=== PATIENT | male | born 1980 | race American Indian/Alaskan Native ===

== ENCOUNTER 2017-01-04 10:39 | Emergency (ER) | payer SELFPAY ==
[2017-01-04 11:40] LABS: Basophils % (Auto) 0.3 % (0.0-1.8); Eosinophils % (Auto) 7.5 % (0.0-4.3); Hematocrit 45.9 % (35.5-45.6); Hemoglobin 15.4 gm/dl (11.8-15.2); Mean Corpuscular HGB Conc 34 % (32-34); Mean Corpuscular Hemoglobin 31 pg (28-32); Mean Corpuscular Volume 92 fl (84-94); Platelet Count 384 K/mm3 (140-440); Red Blood Count 4.97 M/mm3 (3.65-5.03); Red Cell Distribution Width 16.2 % (13.2-15.2); White Blood Count 9.4 K/mm3 (4.5-11.0)
[2017-01-04 11:56] LABS: Creatine Kinase MB 6.1 ng/mL (0.0-4.0)
[2017-01-04 12:01] LABS: Anion Gap 20 mmol/L; Blood Urea Nitrogen 16 mg/dL (9-20); Calcium 8.8 mg/dL (8.4-10.2); Carbon Dioxide 22 mmol/L (22-30); Chloride 92.5 mmol/L (98-107); Creatine Kinase 620 units/L (55-170); Glucose 115 mg/dL (75-100); Potassium 4.1 mmol/L (3.6-5.0); Sodium 130 mmol/L (137-145)
[2017-01-04 14:23] LABS: Urine Drugs of Abuse Note Disclamer
[2017-01-04 14:41] LABS: Bilirubin,Urine NEG (Negative); Blood,Urine SM (Negative); Ketones,Urine TR mg/dL (Negative); Leukocyte Esterase,Urine NEG (Negative); Mucus,Urine FEW /HPF; Nitrite,Urine NEG (Negative); Urobilinogen,Urine < 2.0 mg/dL (<2.0)
[2017-01-04] MEDS ORDERED: NACL 0.9% 1000 ML 1,000 ML IV ONE (17:34)
--- NOTE | 2017-01-04 18:29 | Emergency Department Report ---
ED Syncope HPI - General Chief Complaint: Syncope Stated Complaint: PASSED OUT Time Seen by Provider: 01/04/17 17:23 Source: patient, RN notes reviewed Exam Limitations: no limitations - History of Present Illness Initial Comments: 36-year-old male presents to the emergency department after a syncopal episode. Patient states that he was walking when he suddenly passed out. Patient states that he felt like he was about to have a seizure. There is no report of seizure activity today. Patient denies chest pain, palpitations, or shortness of breath prior to passing out. He states his friends were with him and states that he was unconscious only for a couple of seconds. Patient is also complaining of generalized abdominal pain with blood in stool. This has been present for approximately one year. He reports pain occurs just before having a bowel movement. Pain resolves after a bowel movement. There are no other complaints. Timing/Prior Episodes: single episode today Precipitating Factors: Positive: none Context: standing Loss of Consciousness: brief (seconds) Current Symptoms: back to normal - Related Data Allergies/Adverse Reactions: Allergies No Known Allergies Allergy (Verified 11/17/15 03:17) Home Medications: Ambulatory Orders No Known Home Medications [No Reported Home Medications] 08/14/16 ED Review of Systems ROS: Stated complaint: PASSED OUT Other details as noted in HPI Comment: All other systems reviewed and negative Cardiovascular: syncope Gastrointestinal: abdominal pain, hematochezia ED Past Medical Hx - Past Medical History Previous Medical History?: Yes Hx Hypertension: Yes (no med) Hx Seizures: Yes Hx Psychiatric Treatment: Yes (depression boderline personality disorder) Additional medical history: Self-mutilation. etoh. meth. crack - Surgical History Past Surgical History?: Yes Additional Surgical History: Facial surgery secondary to fractures - Family History Family history: no significant - Social History Smoking Status: Current Every Day Smoker Substance Use Type: Alcohol, Cocaine, Marijuana, Methamphetamines - Medications Home Medications: Home Medications Medication Instructions Recorded Confirmed Last Taken Type No Known Home Medications [No 08/14/16 08/27/16 Unknown History Reported Home Medications] ED Physical Exam - General Limitations: No Limitations General appearance: alert, in no apparent distress - Head Head exam: Present: atraumatic, normocephalic - Eye Eye exam: Present: normal appearance, PERRL, EOMI - ENT ENT exam: Present: normal exam, normal orophraynx, mucous membranes moist - Neck Neck exam: Present: normal inspection, full ROM. Absent: tenderness - Respiratory Respiratory exam: Present: normal lung sounds bilaterally. Absent: respiratory distress - Cardiovascular Cardiovascular Exam: Present: regular rate, normal rhythm, normal heart sounds - GI/Abdominal GI/Abdominal exam: Present: soft, normal bowel sounds. Absent: distended, tenderness - Extremities Exam Extremities exam: Present: normal inspection, full ROM. Absent: tenderness - Back Exam Back exam: Present: normal inspection, full ROM. Absent: tenderness - Neurological Exam Neurological exam: Present: alert, oriented X3. Absent: motor sensory deficit - Skin Skin exam: Present: warm, dry, intact ED Course Vital Signs 01/04/17 01/04/17 01/04/17 11:08 17:21 17:25 Temperature 98.4 F Pulse Rate 100 H 99 H Respiratory 20 20 Rate Blood Pressure 155/111 Blood Pressure 154/98 [Left] O2 Sat by Pulse 100 100 Oximetry ED Medical Decision Making - Lab Data Result diagrams: 01/04/17 11:21 01/04/17 11:21 - EKG Data -: EKG Interpreted by Nv EKG shows normal: sinus rhythm, axis, intervals Rate: normal - EKG Data When compared to previous EKG there are: no significant change Interpretation: unchanged when compared t (08/26/2016), LVH (with early repolarization) - Medical Decision Making Laboratory results reviewed and discussed with the patient. Patient has remained asymptomatic in the emergency department. He reports feeling better with IV fluids. Patient will be discharged home at this time. - Differential Diagnosis syncope, dehydration, drug abuse, diverticular disease Critical care attestation.: If time is entered above; I have spent that time in minutes in the direct care of this critically ill patient, excluding procedure time. ED Disposition Clinical Impression: Syncope and collapse, Polysubstance abuse Disposition: DISCHARGED TO HOME OR SELFCARE Is pt being admited?: No Condition: Stable Instructions: Syncope (ED), Polysubstance Abuse (ED) Referrals: PRIMARY CARE, [Primary Care Provider] - 3-5 Days Time of Disposition: 19:34
[2017-01-04 18:47] VITALS: BP 154/98
== END 2017-01-04 19:41 | disposition home or self-care (01) ==
LOC: ED 10:39
DX: R55 Syncope and collapse (principal); F19.10 Other psychoactive substance abuse, uncomplicated; I10 Essential (primary) hypertension; F17.200 Nicotine dependence, unspecified, uncomplicated; F12.10 Cannabis abuse, uncomplicated; F14.10 Cocaine abuse, uncomplicated
CPT/HCPCS: 36415; 80048; 80307; 81001; 82550; 82553; 84484; 85025; 93005; 93010; 96360; 99283; J7030

== ENCOUNTER 2017-02-16 08:36 | Emergency (ER) | payer SELFPAY ==
[2017-02-16 09:55] VITALS: BP 134/80
--- NOTE | 2017-02-16 10:32 | XRay Report ---
CHEST 2 VIEWS INDICATION: Hypertension. COMPARISON: None similar. FINDINGS: PA and lateral chest radiographs demonstrate normal cardiomediastinal silhouette. Clear, hyperexpanded lungs/COPD. Mild left basilar scarring/pleural thickening/juxtaphrenic peak. No pleural effusions or CHF. Intact bones. CONCLUSION: COPD without acute chest process, as described. Thank you for the opportunity to participate in this patient's care.
[2017-02-16] MEDS ORDERED: KEPPRA PO ONE (10:49)
--- NOTE | 2017-02-16 10:49 | Emergency Department Report ---
ED Syncope HPI - General Chief Complaint: Syncope Stated Complaint: PASSED OUT Time Seen by Provider: 02/16/17 09:31 Source: patient - History of Present Illness Timing/Prior Episodes: single episode today Precipitating Factors: Positive: blurred vision. Negative: confusion, diaphoresis, injury, lightheadedness, nausea, pain, recent head trauma, rapid heart beat Context: standing Loss of Consciousness: brief (seconds) Current Symptoms: back to normal. denies: blurred vision, chest pain, diaphoresis, dizziness, headache, injury, lightheadedness, loss of bladder control, loss of bowel control, motionless, nausea, pale, shallow/rapid breathing, weak/absent pulse, weakness - Related Data Allergies/Adverse Reactions: Allergies No Known Allergies Allergy (Verified 11/17/15 03:17) Home Medications: Ambulatory Orders levETIRAcetam [Keppra TAB] 500 mg PO BID #14 tablet 02/16/17 ED Review of Systems ROS: Stated complaint: PASSED OUT Other details as noted in HPI Other: GENERAL: No weight change, fatigue, weakness, fever, chills, or night sweats SKIN: No changes in skin or hair, no itching, no rashes, no jaundice HEAD: No trauma, headache, or visual changes EYES: No blurriness, tearing, itching, acute visual loss, conjunctival discoloration, or scleral icterus EARS: No hearing loss, tinnitus, vertigo, or earache NOSE: No rhinorrhea, stuffiness, sneezing, itching, or epistaxis MOUTH: No bleeding gums, hoarseness, sore throat, or swelling CARDIAC: No new murmur, chest pain, palpitations, dyspnea on exertion, orthopnea , PND, or edema RESPIRATORY: No shortness of breath, wheeze, cough, sputum production, hemoptysis, pneumonia, asthma, bronchitis, or emphysema GI: No change in appetite, nausea, vomiting, dysphagia, change in bowel frequency, diarrhea, constipation, bleeding, hematemesis, melena, hematochezia, or abdominal pain URINARY: No frequency, urgency, polyuria, dysuria, hematuria, or incontinence MUSCULOSKELETAL: No muscle weakness, joint stiffness, decrease in range of motion, redness, swelling, tenderness NEUROLOGIC: History of seizures currently not taking medications. No loss of sensation, numbness, tingling, tremors, weakness, paralysis HEMATOLOGIC: No anemia, easy bruising, bleeding, petechiae, or purpura ENDOCRINE: No hot or cold intolerance, sweating, polyuria, polydipsia or, polyphagia no thyroid problems PSYCHIATRIC: No change in mood, no anxiety, no depression ED Past Medical Hx - Past Medical History Previous Medical History?: Yes Hx Hypertension: Yes (no med) Hx Seizures: Yes Hx Psychiatric Treatment: Yes (depression boderline personality disorder) Additional medical history: Self-mutilation. etoh. meth. crack - Surgical History Past Surgical History?: Yes Additional Surgical History: Facial surgery secondary to fractures - Social History Smoking Status: Current Every Day Smoker Substance Use Type: Alcohol - Medications Home Medications: Home Medications Medication Instructions Recorded Confirmed Last Taken Type levETIRAcetam [Keppra TAB] 500 mg PO BID #14 tablet 02/16/17 Unknown Rx ED Physical Exam - General Limitations: No Limitations - Other Other exam information: GENERAL: Patient in no acute distress HEAD: Normocephalic, atraumatic EYES: PERRLA, EOM intact, no scleral icterus, no papilledema, no conjunctival hemorrhage, visual mcnulty and acuity wnl, NOSE: No tenderness, discharge, sinus tenderness MOUTH: No erythema, bleeding, exudate HEART: Regular rate and rhythm, no murmur, S1-S2 are auscultated, pulses are symmetric LUNGS: No wheezing, rales, rhonchi, bilateral breath sounds ABDOMEN: Normal bowel sounds, no tenderness, no rebound, no guarding, no masses , no CVA tenderness MUSCULOSKELETAL: Normal joint range of motion, no redness, no swelling, no tenderness NEUROLOGIC: GCS 15, Alert and Oriented x3, Cranial nerves intact, normal sensation, normal strength, normal gait, no cerebellar deficit PSYCHIATRIC: No homicidal or suicidal ideation, no anxiety, no depression, no hallucinations SKIN: Skin is warm and dry, no wounds, no rashes ED Course Vital Signs 02/16/17 02/16/17 02/16/17 08:39 09:26 09:46 Temperature 98.5 F Pulse Rate 96 H 85 Respiratory 16 16 10 L Rate Blood Pressure 162/94 O2 Sat by Pulse 100 100 98 Oximetry 02/16/17 02/16/17 02/16/17 09:47 09:48 09:50 Temperature Pulse Rate 86 90 93 H Respiratory 15 19 18 Rate Blood Pressure 134/80 134/80 134/80 O2 Sat by Pulse 100 99 100 Oximetry 02/16/17 02/16/17 09:52 09:53 Temperature Pulse Rate 80 90 Respiratory 16 16 Rate Blood Pressure 134/80 134/80 O2 Sat by Pulse 98 Oximetry ED Medical Decision Making - EKG Data When compared to previous EKG there are: no significant change - Radiology Data Radiology results: report reviewed - Medical Decision Making Patient comfortable. Updated with results. Plan discharge with outpatient follow-up. Patient agrees with plan and will return if symptoms worsen. Critical care attestation.: If time is entered above; I have spent that time in minutes in the direct care of this critically ill patient, excluding procedure time. ED Disposition Clinical Impression: Syncope and collapse Disposition: DC-01 TO HOME OR SELFCARE Is pt being admited?: No Condition: Stable Instructions: Syncope (ED) Prescriptions: levETIRAcetam [Keppra TAB] 500 mg PO BID #14 tablet Referrals: PRIMARY CAREMD [Primary Care Provider] - 3-5 Days JADA FELIX MD [Staff Physician] - 3-5 Days Time of Disposition: 10:49
== END 2017-02-16 11:09 | disposition home or self-care (01) ==
LOC: ED 08:36
DX: R55 Syncope and collapse (principal); I10 Essential (primary) hypertension; F17.200 Nicotine dependence, unspecified, uncomplicated
CPT/HCPCS: 71020; 82962; 93005; 93010; 99284

== ENCOUNTER 2017-03-08 23:36 | Emergency (ER) | payer SELFPAY ==
[2017-03-09] MEDS ORDERED: RABAVERT RABIES VACCINE(PCEC) IM ONE (05:30)
[2017-03-09] MEDS ORDERED: hyperRAB S/D IM ONE (05:30)
[2017-03-09] MEDS ORDERED: AUGMENTIN 875 MG PO ONE (05:31)
--- NOTE | 2017-03-09 05:33 | Emergency Department Report ---
HPI - General Chief Complaint: Animal Bite Time Seen by Provider: 03/09/17 04:57 - HPI HPI: Patient is a 36-year-old male presents to ED complaining of right hand pain from a dog bite that happened yesterday. Patient states he was walking when some dogs came out of up. In an attempt to be his hand. Patient states this isn't happened yesterday. Patient states pain has gotten worse since yesterday he is unable to move his right thumb due to swelling and pain. Next line he denies fevers/chills/nausea/vomiting/abdominal pain/chest pain/shortness of breath or any other problems. ED Past Medical Hx - Past Medical History Previous Medical History?: Yes Hx Hypertension: Yes (no med) Hx Seizures: Yes Hx Psychiatric Treatment: Yes (depression boderline personality disorder) Additional medical history: Self-mutilation. etoh. meth. crack - Surgical History Past Surgical History?: Yes Additional Surgical History: Facial surgery secondary to fractures - Social History Smoking Status: Current Every Day Smoker Substance Use Type: Alcohol, Cocaine, Marijuana, Methamphetamines, Other - Medications Home Medications: Home Medications Medication Instructions Recorded Confirmed Last Taken Type levETIRAcetam [Keppra TAB] 500 mg PO BID #14 tablet 02/16/17 Unknown Rx Amoxicillin/K Clav Tab [Augmentin 1 tab PO Q12HR #14 tab 03/09/17 Unknown Rx 875 mg] Ibuprofen [Motrin] 800 mg PO Q8HR PRN #40 tablet 03/09/17 Unknown Rx ED Review of Systems ROS: Stated complaint: R HAND INJURY/DOG ATTACK Other details as noted in HPI Constitutional: denies: chills, fever Eyes: denies: eye pain, eye discharge, vision change ENT: denies: ear pain, throat pain Respiratory: denies: cough, shortness of breath, wheezing Cardiovascular: denies: chest pain, palpitations Endocrine: no symptoms reported Gastrointestinal: denies: abdominal pain, nausea, diarrhea Genitourinary: denies: urgency, dysuria Musculoskeletal: denies: back pain, joint swelling, arthralgia Skin: denies: rash, lesions Neurological: denies: headache, weakness, numbness, paresthesias, confusion Psychiatric: denies: anxiety, depression Hematological/Lymphatic: denies: easy bleeding, easy bruising Physical Exam - Physical Exam Vital Signs: Vital Signs 03/09/17 00:41 Temperature 99.2 F Pulse Rate 113 H Respiratory 20 Rate Blood Pressure 144/91 O2 Sat by Pulse 100 Oximetry Physical Exam: GENERAL: Alert and oriented x3, no apparent distress, Normal Gait, atraumatic. HEAD: Head is normocephalic and a-traumatic. EYES: Extra ocular muscles are intact. Pupils are equal, round, and reactive to light and accommodation. LUNGS: Symetrical with respiration, No wheezing, no rales or crackles, CTAB. HEART: S1, S2 present, regular rate and rhythm without murmur, no rubs, no gallops. Non tender to palpation EXTREMITIES/MUSCULOSKELETAL: No cyanosis, clubbing, rash, lesions or edema. Full ROM bilaterally. UE/LE Pulses 2+ bilaterally. LE and UE 5+ strength bilaterally, right hand moderately swollen, tender to palpation. Generalized bite mariee and abrasions seen on hand. NEUROLOGIC: The patient is cooperative with no focal neurologic deficits. Cranial nerves II through XII are grossly intact. Normal speech. PSYCHIATRIC: Mood is congruent with affect, denies suicidal or homicidal ideations. SKIN: Warm and dry, No lesions, No ulceration or induration present. ED Course Vital Signs 03/09/17 00:41 Temperature 99.2 F Pulse Rate 113 H Respiratory 20 Rate Blood Pressure 144/91 O2 Sat by Pulse 100 Oximetry ED Medical Decision Making - Medical Decision Making 36-year-old male presents to ED after sustaining a dog bite ED course: Patient received rabies immunoglobulin, rabies vaccination. Rabies immunoglobulin was administered subcutaneously around the bite and the rest was administered IM. Patient declined 2 mL of the rest of his rabies immunoglobulin injection. he states He does not want anymore pain he will be okay. Discussed with patient need for 4 schedules of rabies vaccine. Discussed to return today for, day 7 and a 14 for remainder of fact schedules. Patient states she understands instructions given. She is alert and oriented 3 she has no neurological deficit and states she will follow up Vital signs are normal ,he is in no distress Critical care attestation.: If time is entered above; I have spent that time in minutes in the direct care of this critically ill patient, excluding procedure time. ED Disposition Clinical Impression: Dog bite Qualifiers: Encounter type: initial encounter Qualified Code(s): W54.0XXA - Bitten by dog, initial encounter Disposition: - TO HOME OR SELFCARE Is pt being admited?: No Does the pt Need Aspirin: No Condition: Stable Instructions: Animal Bite (ED), Acute Wound Care (ED) Additional Instructions: Return to ED and a day 3, 7, 14 for the rest of the vaccination Take antibiotics as prescribed Prescriptions: Amoxicillin/K Clav Tab [Augmentin 875 mg] 1 tab PO Q12HR #14 tab Ibuprofen [Motrin] 800 mg PO Q8HR PRN #40 tablet PRN Reason: Pain Referrals: [facility] [Outside] - 3-5 Days [facility] [Outside] - 3-5 Days [facility] [Outside] - 3-5 Days Forms: Accompanied Note, Work/School Release Form(ED) Time of Disposition: 05:49
[2017-03-09 06:34] VITALS: BP 136/74
== END 2017-03-09 06:34 | disposition home or self-care (01) ==
LOC: ED 23:36
DX: S61.451A Open bite of right hand, initial encounter (principal); I10 Essential (primary) hypertension; F32.9 Major depressive disorder, single episode, unspecified; F17.210 Nicotine dependence, cigarettes, uncomplicated; F12.10 Cannabis abuse, uncomplicated; F14.10 Cocaine abuse, uncomplicated; F15.10 Other stimulant abuse, uncomplicated; W54.0XXA Bitten by dog, initial encounter; Y93.01 Activity, walking, marching and hiking; Y92.89 Other specified places as the place of occurrence of the external cause; Y99.8 Other external cause status
CPT/HCPCS: 90375; 90471; 90675; 96372; 99282

== ENCOUNTER 2017-03-12 13:28 | Emergency (ER) | payer SELFPAY ==
[2017-03-12 14:08] VITALS: BP 136/93
[2017-03-12] MEDS ORDERED: RABAVERT RABIES VACCINE(PCEC) IM ONE (15:59)
--- NOTE | 2017-03-12 16:04 | Emergency Department Report ---
ED Recheck HPI - General Chief Complaint: Animal Bite Stated Complaint: 2ND RABIE SHOT Time Seen by Provider: 03/12/17 15:51 Source: patient Mode of arrival: Ambulatory Limitations: No Limitations - History of Present Illness Initial Comments: Patient comes into the ER today for his second rabies vaccination. Patient was seen here 4 days ago following a dog bite to his right hand. Patient states that he is feeling little bit better but that his right thumb is still very painful and swollen. Patient denies any fever, body aches, chills. Patient states that he has not been taking anything orally since his visit here. MD Complaint: wound re-check - Related Data Previous Rx's Medication Instructions Recorded Last Taken Type levETIRAcetam [Keppra TAB] 500 mg PO BID #14 tablet 02/16/17 Unknown Rx Amoxicillin/K Clav Tab [Augmentin 1 tab PO Q12HR #14 tab 03/09/17 Unknown Rx 875 mg] Ibuprofen [Motrin] 800 mg PO Q8HR PRN #40 tablet 03/09/17 Unknown Rx Amoxicillin/K Clav Tab [Augmentin 1 tab PO Q12HR #20 tab 03/12/17 Unknown Rx 875 mg] traMADol [Ultram] 50 mg PO Q6HR PRN #15 tablet 03/12/17 Unknown Rx Allergies Allergy/AdvReac Type Severity Reaction Status Date / Time No Known Allergies Allergy Verified 11/17/15 03:17 ED Review of Systems ROS: Stated complaint: 2ND RABIE SHOT Other details as noted in HPI Constitutional: denies: chills, fever Eyes: denies: eye pain, eye discharge, vision change ENT: denies: ear pain, throat pain Respiratory: denies: cough, shortness of breath, wheezing Cardiovascular: denies: chest pain, palpitations Endocrine: no symptoms reported Gastrointestinal: denies: abdominal pain, nausea, diarrhea Genitourinary: denies: urgency, dysuria Musculoskeletal: joint swelling (right thumb), arthralgia (right thumb). denies : back pain Skin: denies: rash, lesions Neurological: denies: headache, weakness, paresthesias Psychiatric: denies: anxiety, depression Hematological/Lymphatic: denies: easy bleeding, easy bruising ED Past Medical Hx - Past Medical History Previous Medical History?: Yes Hx Hypertension: Yes (no med) Hx Seizures: Yes Hx Psychiatric Treatment: Yes (depression boderline personality disorder) Additional medical history: Self-mutilation. etoh. meth. crack - Surgical History Past Surgical History?: Yes Additional Surgical History: Facial surgery secondary to fractures - Social History Smoking Status: Current Every Day Smoker Substance Use Type: None - Medications Home Medications: Home Medications Medication Instructions Recorded Confirmed Last Taken Type levETIRAcetam [Keppra TAB] 500 mg PO BID #14 tablet 02/16/17 Unknown Rx Amoxicillin/K Clav Tab [Augmentin 1 tab PO Q12HR #14 tab 03/09/17 Unknown Rx 875 mg] Ibuprofen [Motrin] 800 mg PO Q8HR PRN #40 tablet 03/09/17 Unknown Rx Amoxicillin/K Clav Tab [Augmentin 1 tab PO Q12HR #20 tab 03/12/17 Unknown Rx 875 mg] traMADol [Ultram] 50 mg PO Q6HR PRN #15 tablet 03/12/17 Unknown Rx ED Physical Exam - General Limitations: No Limitations General appearance: alert, in no apparent distress - Head Head exam: Present: atraumatic, normocephalic - Eye Eye exam: Present: normal appearance - ENT ENT exam: Present: mucous membranes moist - Neck Neck exam: Present: normal inspection - Respiratory Respiratory exam: Present: normal lung sounds bilaterally. Absent: respiratory distress - Cardiovascular Cardiovascular Exam: Present: regular rate, normal rhythm. Absent: systolic murmur, diastolic murmur, rubs, gallop - GI/Abdominal GI/Abdominal exam: Present: soft, normal bowel sounds - Rectal Rectal exam: Present: deferred - Extremities Exam Extremities exam: Present: tenderness (right thumb tenderness), normal capillary refill, joint swelling (right thumb), other (multiple healing abrasions and puncture wounds noted to right hand anteriorly and posteriorly. No draining or redness noted to wounds.) - Back Exam Back exam: Present: normal inspection - Neurological Exam Neurological exam: Present: alert, oriented X3 - Psychiatric Psychiatric exam: Present: normal affect, normal mood - Skin Skin exam: Present: warm, dry, intact, normal color. Absent: rash ED Course Vital Signs 03/12/17 14:06 Temperature 98.7 F Pulse Rate 95 H Respiratory 18 Rate Blood Pressure 136/93 O2 Sat by Pulse 100 Oximetry ED Recheck MDM - Differential Diagnosis Wound Recheck - Medical Decision Making Patient is nontoxic and hemodynamically stable. Patient was given his second rabies vaccination in the ER today. Patient is instructed to return in 3-4 days for his third rabies vaccination. Patient has not been taking any antibiotics and I am concerned that some of the continued swelling may be related to possible underlying infection. I will start patient on some antibiotics accordingly. Patient is in agreement with treatment plan and patient stable for discharge. Critical care attestation.: If time is entered above; I have spent that time in minutes in the direct care of this critically ill patient, excluding procedure time. ED Disposition Clinical Impression: Need for rabies vaccination, Dog bite of right hand Puncture wound, hand Qualifiers: Encounter type: subsequent encounter Foreign body presence: without foreign body Laterality: right Qualified Code(s): S61.431D - Puncture wound without foreign body of right hand, subsequent encounter Disposition: TO HOME OR SELFCARE Is pt being admited?: No Does the pt Need Aspirin: No Condition: Stable Instructions: Animal Bite (ED), Rabies Vaccine (Injection), Puncture Wound (ED) Prescriptions: Amoxicillin/K Clav Tab [Augmentin 875 mg] 1 tab PO Q12HR #20 tab traMADol [Ultram] 50 mg PO Q6HR PRN #15 tablet PRN Reason: Pain Referrals: PRIMARY CARE,MD [Primary Care Provider] - 3-5 Days [facility], emergency Department [Other] - 03/15/17 (For 3rd rabies vaccination) Time of Disposition: 16:07
== END 2017-03-12 16:37 | disposition home or self-care (01) ==
LOC: ED 13:28
DX: Z23 Encounter for immunization (principal)
CPT/HCPCS: 90471; 90675; 96372

== ENCOUNTER 2017-03-16 02:19 | Emergency (ER) | payer SELFPAY ==
[2017-03-16 02:35] VITALS: BP 131/91
--- NOTE | 2017-03-16 04:08 | Emergency Department Report ---
ED Recheck HPI - General Chief Complaint: Medical Clearance Stated Complaint: FOLLOW UP VISIT Time Seen by Provider: 03/16/17 03:42 Source: patient Mode of arrival: Ambulatory Limitations: No Limitations - History of Present Illness Initial Comments: This is a 36-year-old male well-nourished with nontoxic or ill in appearance that presents with his third rabies vaccine. Patient was seen about 1 week ago following a dog bite to his right hand. Patient states he was prescribed Augmentin but patient stated that he his swelling has not subsided. He denies any redness, fever, body aches, chills, chest pain, shortness of breath, numbness or tingling. Patient denies any allergies. Denies Past medical history. Patient stated was bit on 03/08/2017. Complaint: wound re-check -: Gradual, week(s) (1) Initial Visit For: animal bite Returns Today for: rabies shot Symptoms Since Prior Visit: no new symptoms Associated Symptoms: none. denies: fever, chills, chest pain, shortness of breath, rash, malaise, [place], abdominal pain - Related Data Previous Rx's Medication Instructions Recorded Last Taken Type levETIRAcetam [Keppra TAB] 500 mg PO BID #14 tablet 02/16/17 Unknown Rx Amoxicillin/K Clav Tab [Augmentin 1 tab PO Q12HR #14 tab 03/09/17 Unknown Rx 875 mg] Ibuprofen [Motrin] 800 mg PO Q8HR PRN #40 tablet 03/09/17 Unknown Rx Amoxicillin/K Clav Tab [Augmentin 1 tab PO Q12HR #20 tab 03/12/17 Unknown Rx 875 mg] traMADol [Ultram] 50 mg PO Q6HR PRN #15 tablet 03/12/17 Unknown Rx Cephalexin [Keflex] 500 mg PO Q8HR 7 Days 03/16/17 Unknown Rx Sulfamethoxazole/Trimethoprim 1 each PO BID 7 Days 03/16/17 Unknown Rx [Bactrim DS TAB] Allergies Allergy/AdvReac Type Severity Reaction Status Date / Time No Known Allergies Allergy Verified 11/17/15 03:17 ED Review of Systems ROS: Stated complaint: FOLLOW UP VISIT Other details as noted in HPI Constitutional: denies: chills, fever Eyes: denies: eye pain, eye discharge, vision change ENT: denies: ear pain, throat pain Respiratory: denies: cough, shortness of breath, wheezing Cardiovascular: denies: chest pain, palpitations Endocrine: no symptoms reported Gastrointestinal: denies: abdominal pain, nausea, diarrhea Genitourinary: denies: urgency, dysuria Musculoskeletal: denies: back pain, joint swelling, arthralgia Skin: denies: rash, lesions Neurological: denies: headache, weakness, paresthesias Psychiatric: denies: anxiety, depression Hematological/Lymphatic: denies: easy bleeding, easy bruising ED Past Medical Hx - Past Medical History Hx Hypertension: Yes (no med) Hx Seizures: Yes Hx Psychiatric Treatment: Yes (depression boderline personality disorder) Additional medical history: Self-mutilation. etoh. meth. crack - Surgical History Additional Surgical History: Facial surgery secondary to fractures - Social History Smoking Status: Current Every Day Smoker Substance Use Type: None - Medications Home Medications: Home Medications Medication Instructions Recorded Confirmed Last Taken Type levETIRAcetam [Keppra TAB] 500 mg PO BID #14 tablet 02/16/17 Unknown Rx Amoxicillin/K Clav Tab [Augmentin 1 tab PO Q12HR #14 tab 03/09/17 Unknown Rx 875 mg] Ibuprofen [Motrin] 800 mg PO Q8HR PRN #40 tablet 03/09/17 Unknown Rx Amoxicillin/K Clav Tab [Augmentin 1 tab PO Q12HR #20 tab 03/12/17 Unknown Rx 875 mg] traMADol [Ultram] 50 mg PO Q6HR PRN #15 tablet 03/12/17 Unknown Rx Cephalexin [Keflex] 500 mg PO Q8HR 7 Days 03/16/17 Unknown Rx Sulfamethoxazole/Trimethoprim 1 each PO BID 7 Days 03/16/17 Unknown Rx [Bactrim DS TAB] ED Physical Exam - General Limitations: No Limitations General appearance: alert, in no apparent distress - Head Head exam: Present: atraumatic, normocephalic, normal inspection - Eye Eye exam: Present: normal appearance, PERRL, EOMI. Absent: scleral icterus, conjunctival injection, nystagmus, periorbital swelling, periorbital tenderness Pupils: Present: normal accommodation - ENT ENT exam: Present: normal exam, normal orophraynx, mucous membranes moist, TM's normal bilaterally, normal external ear exam - Neck Neck exam: Present: normal inspection, full ROM. Absent: tenderness, meningismus, lymphadenopathy, thyromegaly - Respiratory Respiratory exam: Present: normal lung sounds bilaterally. Absent: respiratory distress, wheezes, rales, rhonchi, stridor, chest wall tenderness, accessory muscle use, decreased breath sounds, prolonged expiratory - Cardiovascular Cardiovascular Exam: Present: regular rate, normal rhythm. Absent: systolic murmur, diastolic murmur, rubs, gallop - GI/Abdominal GI/Abdominal exam: Present: soft, normal bowel sounds. Absent: distended, tenderness, guarding, rebound, rigid - Rectal Rectal exam: Present: deferred - Extremities Exam Extremities exam: Present: normal inspection, full ROM, tenderness, normal capillary refill. Absent: pedal edema, joint swelling, calf tenderness - Expanded Upper Extremity Exam Right General: Present: normal inspection Shoulder Exam: Present: normal inspection, full ROM. Absent: tenderness, swelling, abrasion, laceration, ecchymosis, deformity, crepidus, dislocation, erythema, tenderness over AC joint Upper Arm exam: Present: normal inspection, full ROM. Absent: tenderness, swelling, abrasion, laceration, ecchymosis, deformity, crepidus, dislocation, erythema Elbow exam: Present: normal inspection, full ROM. Absent: tenderness, swelling , abrasion, laceration, ecchymosis, deformity, crepidus, dislocation, erythema, effusion, pain w/ pronation/supination, tenderness over radial head Forearm Wrist exam: Present: normal inspection, full ROM. Absent: tenderness, swelling, abrasion, laceration, ecchymosis, deformity, crepidus, dislocation, erythema, tenderness over anatomical snuff box, pain with axial thumb loading Hand Wrist exam: Present: normal inspection, full ROM, tenderness, swelling. Absent: abrasion, laceration, ecchymosis, deformity, crepidus, dislocation, erythema, amputation, nail avulsion, subungual hematoma Neuro motor exam: Present: wrist extension intact, thumb opposition intact, thumb IP flexion intact, thumb adduction intact, fingers 2-5 abduction intact Neurosensory exam: Present: 2-point discrimination, radial nerve intact, ulnar nerve intact, median nerve intact Vascular: Present: vascular compromise, normal capillary refill, radial pulse, brachial pulse, ulnar pulse - Back Exam Back exam: Present: normal inspection, full ROM. Absent: tenderness, CVA tenderness (R), CVA tenderness (L), muscle spasm, paraspinal tenderness, vertebral tenderness, rash noted - Neurological Exam Neurological exam: Present: alert, oriented X3, CN II-XII intact, normal gait, reflexes normal - Psychiatric Psychiatric exam: Present: normal affect, normal mood - Skin Skin exam: Present: warm, dry, intact, normal color. Absent: rash - Other Other exam information: Multiple healing abrasion and puncture wounds noted to the right hand anteriorly and posteriorly. No drainage noted. No pus, no drainage, no redness. Swelling and tenderness to touch. ED Course Vital Signs 03/16/17 02:30 Temperature 98.6 F Pulse Rate 89 Respiratory 18 Rate Blood Pressure 131/91 O2 Sat by Pulse 100 Oximetry ED Recheck MDM - Medical Decision Making ED course: This is a 36-year-old male that presents with rabies vaccination. Patient was examined by myself. Patient is hemodynamically stable. Patient was given his third rabies vaccine in the ER with no signs of distress noted. Patient stated has been taking Augmentin with no relief and stated swelling is still there with pain. I'll start patient on Bactrim and Keflex at the time of discharge. I struck to the patient to return if symptoms of swelling, redness, or tenderness to touch is not relieved within 2 days. At time time of discharge , the patient does not seem toxic or ill in appearance. No acute signs of distress noted. Patient agrees to discharge treatment plan of care. No further questions noted by the patient. Patient was instructed to return for the 4th rabies vaccine on 03/22/2017. Critical care attestation.: If time is entered above; I have spent that time in minutes in the direct care of this critically ill patient, excluding procedure time. ED Disposition Clinical Impression: Need for rabies vaccination Disposition: DC-01 TO HOME OR SELFCARE Is pt being admited?: No Does the pt Need Aspirin: No Condition: Stable Instructions: Cephalexin (By mouth), Sulfamethoxazole/Trimethoprim (By mouth), Rabies Vaccine (Injection) Additional Instructions: Return to the ED on 03/22/2017 for the 4th rabies vaccine. Stop taking Augmentin and start taking Keflex and Bactrim as prescribed. If symptoms worsen such as swelling, numbness, tingling, redness, fever or chills, pus, drainage, return to the emergency room as soon as possible Prescriptions: Cephalexin [Keflex] 500 mg PO Q8HR 7 Days Sulfamethoxazole/Trimethoprim [Bactrim DS TAB] 1 each PO BID 7 Days Referrals: PRIMARY CAREMD [Primary Care Provider] - 3-5 Days COLBY ALBA JR, MD [Staff Physician] - 3-5 Days [facility] [Outside] - 3-5 Days [facility] [Outside] - 3-5 Days Forms: Work/School Release Form(ED)
[2017-03-16] MEDS ORDERED: RABAVERT RABIES VACCINE(PCEC) IM ONE (04:09)
== END 2017-03-16 04:52 | disposition home or self-care (01) ==
LOC: ED 02:19
DX: Z23 Encounter for immunization (principal); I10 Essential (primary) hypertension; R56.9 Unspecified convulsions; F32.9 Major depressive disorder, single episode, unspecified; F17.200 Nicotine dependence, unspecified, uncomplicated
CPT/HCPCS: 90471; 90675; 99282

== ENCOUNTER 2017-08-14 19:36 | Emergency (ER) | payer SELFPAY | END 2017-08-14 20:15 | disposition left against medical advice (07) | LOC: ED 19:36 | DX: R51 Headache (principal); Z53.21 Procedure and treatment not carried out due to patient leaving prior to being seen by health care provider ==

== ENCOUNTER 2017-08-19 14:20 | Emergency (ER) | payer SELFPAY ==
[2017-08-19 14:28] VITALS: BP 118/86
== END 2017-08-19 15:35 | disposition left against medical advice (07) ==
LOC: ED 14:20
DX: Z53.21 Procedure and treatment not carried out due to patient leaving prior to being seen by health care provider (principal)

== ENCOUNTER 2017-08-19 20:43 | Emergency (ER) | payer OTHER ==
[2017-08-19 20:51] VITALS: BP 137/92
[2017-08-20 00:29] LABS: Basophils % (Auto) 0.7 % (0.0-1.8); Eosinophils % (Auto) 7.2 % (0.0-4.3); Hematocrit 49.9 % (35.5-45.6); Hemoglobin 16.3 gm/dl (11.8-15.2); Mean Corpuscular HGB Conc 33 % (32-34); Mean Corpuscular Hemoglobin 31 pg (28-32); Mean Corpuscular Volume 94 fl (84-94); Platelet Count 344 K/mm3 (140-440); Red Blood Count 5.33 M/mm3 (3.65-5.03); Red Cell Distribution Width 14.5 % (13.2-15.2); White Blood Count 7.6 K/mm3 (4.5-11.0)
[2017-08-20 00:46] LABS: Alanine Aminotransferase 13 units/L (7-56); Albumin 3.8 g/dL (3.9-5); Albumin/Globulin Ratio 1.1 %; Alkaline Phosphatase 78 units/L (35-129); Anion Gap 18 mmol/L; BUN/Creatinine Ratio 13; Blood Urea Nitrogen 10 mg/dL (9-20); Calcium 8.5 mg/dL (8.4-10.2); Carbon Dioxide 26 mmol/L (22-30); Chloride 101.1 mmol/L (98-107); Glucose 95 mg/dL (75-100); Potassium 3.7 mmol/L (3.6-5.0); Sodium 141 mmol/L (137-145); Total Protein 7.3 g/dL (6.3-8.2)
[2017-08-20 00:52] LABS: Urine Drugs of Abuse Note Disclamer
[2017-08-20 01:04] LABS: Bilirubin,Urine NEG (Negative); Blood,Urine NEG (Negative); Ketones,Urine TR mg/dL (Negative); Leukocyte Esterase,Urine NEG (Negative); Mucus,Urine FEW /HPF; Nitrite,Urine NEG (Negative); Protein,Urine <15 mg/dL mg/dL (Negative)
--- NOTE | 2017-08-20 03:36 | Emergency Department Report ---
ED Medical Clearance HPI - General Chief complaint: Medical Clearance Stated complaint: MEDICAL CLEAR. Time Seen by Provider: 08/19/17 23:23 Source: family Mode of arrival: Ambulatory Limitations: No Limitations - History of Present Illness Initial comments: Patient wants rehab for meth and alcohol abuse. -: month(s) (6) Reason for Medical Clearance: intoxication Place: home Alledged Intoxication: No Compliant with Home Medications: Yes (no meds.) Traumatic Symptoms: denies traumatic injury Associated Symptoms: other (none) Treatments Prior to Arrival: none Home medications: Previous Rx's Medication Instructions Recorded Last Taken Type levETIRAcetam [Keppra TAB] 500 mg PO BID #14 tablet 02/16/17 Unknown Rx Amoxicillin/K Clav Tab [Augmentin 1 tab PO Q12HR #14 tab 03/09/17 Unknown Rx 875 mg] Ibuprofen [Motrin] 800 mg PO Q8HR PRN #40 tablet 03/09/17 Unknown Rx Amoxicillin/K Clav Tab [Augmentin 1 tab PO Q12HR #20 tab 03/12/17 Unknown Rx 875 mg] traMADol [Ultram] 50 mg PO Q6HR PRN #15 tablet 03/12/17 Unknown Rx Cephalexin [Keflex] 500 mg PO Q8HR 7 Days cap 03/16/17 Unknown Rx Sulfamethoxazole/Trimethoprim 1 each PO BID 7 Days tablet 03/16/17 Unknown Rx [Bactrim DS TAB] Allergies/Adverse reactions: Allergies Allergy/AdvReac Type Severity Reaction Status Date / Time No Known Allergies Allergy Verified 11/17/15 03:17 ED Review of Systems ROS: Stated complaint: MEDICAL CLEAR. Other details as noted in HPI Constitutional: denies: chills, fever Eyes: denies: eye pain, eye discharge, vision change ENT: denies: ear pain, throat pain Respiratory: denies: cough, shortness of breath, wheezing Cardiovascular: denies: chest pain, palpitations Endocrine: no symptoms reported Gastrointestinal: denies: abdominal pain, nausea, diarrhea Genitourinary: denies: urgency, dysuria Musculoskeletal: denies: back pain, joint swelling, arthralgia Skin: denies: rash, lesions Neurological: denies: headache, weakness, paresthesias Psychiatric: other (No SI or HI.). denies: anxiety, depression Hematological/Lymphatic: denies: easy bleeding, easy bruising ED Past Medical Hx - Past Medical History Hx Hypertension: Yes (no med) Hx Seizures: Yes Hx Psychiatric Treatment: Yes (depression boderline personality disorder) Additional medical history: Self-mutilation. etoh. meth. crack - Surgical History Additional Surgical History: Facial surgery secondary to fractures - Social History Smoking Status: Current Every Day Smoker Substance Use Type: None - Medications Home Medications: Home Medications Medication Instructions Recorded Confirmed Last Taken Type levETIRAcetam [Keppra TAB] 500 mg PO BID #14 tablet 02/16/17 Unknown Rx Amoxicillin/K Clav Tab [Augmentin 1 tab PO Q12HR #14 tab 03/09/17 Unknown Rx 875 mg] Ibuprofen [Motrin] 800 mg PO Q8HR PRN #40 tablet 03/09/17 Unknown Rx Amoxicillin/K Clav Tab [Augmentin 1 tab PO Q12HR #20 tab 03/12/17 Unknown Rx 875 mg] traMADol [Ultram] 50 mg PO Q6HR PRN #15 tablet 03/12/17 Unknown Rx Cephalexin [Keflex] 500 mg PO Q8HR 7 Days cap 03/16/17 Unknown Rx Sulfamethoxazole/Trimethoprim 1 each PO BID 7 Days tablet 03/16/17 Unknown Rx [Bactrim DS TAB] ED Physical Exam - General Limitations: No Limitations General appearance: alert, in no apparent distress - Head Head exam: Present: atraumatic, normocephalic - Eye Eye exam: Present: normal appearance, PERRL, EOMI Pupils: Present: normal accommodation - ENT ENT exam: Present: normal exam, mucous membranes moist - Neck Neck exam: Present: normal inspection - Respiratory Respiratory exam: Present: normal lung sounds bilaterally. Absent: respiratory distress - Cardiovascular Cardiovascular Exam: Present: regular rate, normal rhythm. Absent: systolic murmur, diastolic murmur, rubs, gallop - GI/Abdominal GI/Abdominal exam: Present: soft, normal bowel sounds - Rectal Rectal exam: Present: deferred - Extremities Exam Extremities exam: Present: normal inspection - Back Exam Back exam: Present: normal inspection - Neurological Exam Neurological exam: Present: alert, oriented X3 - Psychiatric Psychiatric exam: Present: normal affect, normal mood, other (No suicidal or homocidal ideation.) - Skin Skin exam: Present: warm, dry, intact, normal color. Absent: rash ED Course Vital Signs 08/19/17 20:47 Temperature 98.7 F Pulse Rate 102 H Respiratory 16 Rate Blood Pressure 137/92 O2 Sat by Pulse 100 Oximetry ED Medical Decision Making - Lab Data Result diagrams: 08/20/17 00:04 08/20/17 00:04 Unremarkable labs other than meth and marijuana in your urine. - Medical Decision Making patient is medically cleared to go to a rehab center. He received material from psych. ED Disposition Clinical Impression: Methamphetamine abuse, Alcohol abuse Disposition: DC-01 TO HOME OR SELFCARE Is pt being admited?: No Does the pt Need Aspirin: No Condition: Good Instructions: Abuse of Alcohol (ED), Methamphetamine Abuse (ED) Referrals: PRIMARY CARE, [Primary Care Provider] - 3-5 Days (Will go to rehab facilities based on material given by Psych.) Time of Disposition: 03:37
== END 2017-08-20 03:55 | disposition home or self-care (01) ==
LOC: ED 20:43
DX: F10.10 Alcohol abuse, uncomplicated (principal); F15.10 Other stimulant abuse, uncomplicated; I10 Essential (primary) hypertension; F17.200 Nicotine dependence, unspecified, uncomplicated
CPT/HCPCS: 36415; 80053; 80307; 81001; 84443; 85025; 99284; G0480; 80320

== ENCOUNTER 2017-09-15 15:27 | Emergency (ER) | payer OTHER ==
[2017-09-15 15:49] VITALS: BP 155/89
== END 2017-09-16 03:30 | disposition left against medical advice (07) ==
LOC: ED 15:27
DX: Z53.21 Procedure and treatment not carried out due to patient leaving prior to being seen by health care provider (principal)

== ENCOUNTER 2018-01-22 00:47 | Emergency (ER) | payer SELFPAY ==
[2018-01-22 00:56] VITALS: BP 163/94
[2018-01-22 02:03] LABS: Amorphous Crystals,Urine Few; Bilirubin,Urine NEG (Negative); Blood,Urine SM (Negative); Color,Urine Yellow (Yellow); Hyaline Casts,Urine 1 /LPF; Mucus,Urine FEW /HPF; Protein,Urine <15 mg/dL mg/dL (Negative); Sperm,Urine FEW /HPF (NP); Urobilinogen,Urine < 2.0 mg/dL (<2.0)
[2018-01-22 02:03] LABS: Basophils % (Auto) 0.4 % (0.0-1.8); Eosinophils % (Auto) 0.1 % (0.0-4.3); Hematocrit 39.8 % (35.5-45.6); Hemoglobin 13.9 gm/dl (11.8-15.2); Lymphocytes # (Auto) 1.5 K/mm3 (1.2-5.4); Lymphocytes % (Auto) 14.8 % (13.4-35.0); Mean Corpuscular HGB Conc 35 % (32-34); Mean Corpuscular Hemoglobin 31 pg (28-32); Mean Corpuscular Volume 90 fl (84-94); Monocytes % (Auto) 10.5 % (0.0-7.3); Platelet Count 331 K/mm3 (140-440); Red Blood Count 4.42 M/mm3 (3.65-5.03)
[2018-01-22 02:12] LABS: BUN/Creatinine Ratio 11; Blood Urea Nitrogen 10 mg/dL (9-20); Hemolysis Index 0
--- NOTE | 2018-01-22 05:20 | Cat Scan Report ---
FINAL REPORT PROCEDURE: CT HEAD/BRAIN WO CON TECHNIQUE: Computerized tomography of the head was performed without contrast material. HISTORY: syncopy COMPARISON: No prior studies are available for comparison. FINDINGS: Skull and scalp: Normal. Paranasal sinuses: Normal. Ventricles and subarachnoid spaces: Normal. Cerebrum: No evidence of hemorrhage, acute infarction or mass . Cerebellum and brainstem: No evidence of hemorrhage, acute infarction or mass. Vasculature: Normal. Comments: None. IMPRESSION: Normal Examination
== END 2018-01-22 01:45 | disposition left against medical advice (07) ==
LOC: ED 00:47
DX: R55 Syncope and collapse (principal); Z53.21 Procedure and treatment not carried out due to patient leaving prior to being seen by health care provider
CPT/HCPCS: 36415; 70450; 80048; 81001; 85025

== ENCOUNTER 2018-11-13 13:27 | Emergency (ER) | payer OTHER ==
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
[2018-11-13] MEDS ORDERED: NACL 0.9% 1000 ML 1,000 ML IV ONE (14:09)
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
[2018-11-13 14:39] LABS: Bilirubin,Urine NEG (Negative); Blood,Urine SM (Negative); Color,Urine Yellow (Yellow); Protein,Urine <15 mg/dL mg/dL (Negative); Urobilinogen,Urine < 2.0 mg/dL (<2.0)
[2018-11-13 14:45] LABS: Basophils # (Auto) 0.1 K/mm3 (0.0-0.1); Basophils % (Auto) 0.6 % (0.0-1.8); Eosinophils % (Auto) 0.5 % (0.0-4.3); Hematocrit 45.2 % (35.5-45.6); Hemoglobin 15.4 gm/dl (11.8-15.2); Lymphocytes # (Auto) 2.3 K/mm3 (1.2-5.4); Lymphocytes % (Auto) 26.5 % (13.4-35.0); Mean Corpuscular HGB Conc 34 % (32-34); Mean Corpuscular Volume 92 fl (84-94); Monocytes # (Auto) 0.7 K/mm3 (0.0-0.8); Monocytes % (Auto) 8.3 % (0.0-7.3); Platelet Count 402 K/mm3 (140-440); Red Cell Distribution Width 15.2 % (13.2-15.2)
[2018-11-13 14:48] LABS: Amphetamine Screen,Urine PRESUMPTIVE NEGATIVE; Benzodiazepines Screen,Urine PRESUMPTIVE NEGATIVE; Methadone Screen,Urine PRESUMPTIVE NEGATIVE; Opiate Screen,Urine PRESUMPTIVE NEGATIVE
[2018-11-13 15:01] LABS: Alanine Aminotransferase 14 units/L (7-56); Albumin 4.5 g/dL (3.9-5); BUN/Creatinine Ratio 13; Blood Urea Nitrogen 9 mg/dL (9-20); Calcium 9.1 mg/dL (8.4-10.2); Hemolysis Index 2
[2018-11-13 15:11] LABS: Cannabinoid Screen,Urine PRESUMPTIVE POSITIVE; Cocaine Screen,Urine PRESUMPTIVE POSITIVE
[2018-11-14 07:59] VITALS: BP 120/79
== END 2018-11-14 14:45 ==
LOC: ED 13:27
DX: F32.9 Major depressive disorder, single episode, unspecified (principal); R45.851 Suicidal ideations; I10 Essential (primary) hypertension; F17.200 Nicotine dependence, unspecified, uncomplicated; F12.10 Cannabis abuse, uncomplicated
CPT/HCPCS: 36415; 80053; 80307; 81001; 84443; 85025; 99285; G0480; J7030; 80320

== ENCOUNTER 2020-12-23 06:49 | Emergency (ER) | payer SELFPAY ==
[2020-12-23 08:00] LABS: Alanine Aminotransferase 12 units/L (7-56); Albumin 4.1 g/dL (3.9-5); BUN/Creatinine Ratio 8; Blood Urea Nitrogen 8 mg/dL (9-20); Calcium 9.2 mg/dL (8.4-10.2); Hemolysis Index 12
[2020-12-23 08:06] LABS: Basophils # (Auto) 0.1 K/mm3 (0.0-0.1); Basophils % (Auto) 1.8 % (0.0-1.8); Eosinophils # (Auto) 0.1 K/mm3 (0.0-0.4); Eosinophils % (Auto) 1.9 % (0.0-4.3); Hematocrit 47.4 % (35.5-45.6); Hemoglobin 16.3 gm/dl (11.8-15.2); Lymphocytes # (Auto) 1.3 K/mm3 (1.2-5.4); Lymphocytes % (Auto) 19.5 % (13.4-35.0); Mean Corpuscular HGB Conc 34 % (32-34); Mean Corpuscular Volume 92 fl (84-94); Monocytes # (Auto) 0.4 K/mm3 (0.0-0.8); Monocytes % (Auto) 6.5 % (0.0-7.3); Platelet Count 369 K/mm3 (140-440); Red Blood Count 5.15 M/mm3 (3.65-5.03); Red Cell Distribution Width 15.9 % (13.2-15.2)
--- NOTE | 2020-12-23 08:08 | Cat Scan Report ---
CT head without contrast INDICATION : SYNCOPE FELL FACE FORWARD. TECHNIQUE: Axial imaging performed from the skull apex through the skull base without the use of con trast. All CT scans at this location are performed using CT dose reduction for ALARA by means of aut omated exposure control. COMPARISON: CT head from 01/22/2018 FINDINGS: Parenchyma: No acute intracranial hemorrhage or parenchymal abnormality. Ventricles: Ventricles are normal in size and appear symmetric. Soft tissues: Soft tissues including the orbits appear normal. Bones: No acute osseous abnormality. Sinuses: Sinuses and mastoid air cells are clear. IMPRESSION: No acute abnormality. Signer Name: Samir Grace MD Signed: 12/23/2020 8:03 AM Workstation Name: [id number]
--- NOTE | 2020-12-23 08:09 | Cat Scan Report ---
CT cervical spine without contrast INDICATION: SYNCOPE FELL FACE FORWARD. TECHNIQUE: Axial imaging performed through the cervical spine without the use of contrast. Sagittal and coronal reconstructed images were also reviewed. All CT scans at this location are performed us ing CT dose reduction for ALARA by means of automated exposure control. COMPARISON: None FINDINGS: Alignment: Spinal alignment is normal. Bones: There is no acute osseous abnormality. Mild multilevel discogenic DJD is present. Soft tissues: No acute or significant incidental soft tissue abnormality. IMPRESSION: No acute abnormality. Signer Name: Samir Grace MD Signed: 12/23/2020 8:05 AM Workstation Name: [id number]
[2020-12-23] MEDS ORDERED: levETIRAcetam 1000 MG/NS 0.75% 1,000 MG/100 ML BAG IV ONE (10:44)
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
[2020-12-23 11:51] LABS: Creatine Kinase MB 2.1 ng/mL (0.0-4.0)
[2020-12-23 14:47] LABS: Amphetamine Screen,Urine Negative; Benzodiazepines Screen,Urine Negative; Cocaine Screen,Urine Negative; Methadone Screen,Urine Negative; Opiate Screen,Urine Negative
[2020-12-23 14:56] LABS: Mucus,Urine FEW /HPF
[2020-12-23 15:00] LABS: Cannabinoid Screen,Urine Positive
[2020-12-23 15:03] LABS: Bacteria,Urine 1+ /HPF (Negative); Bilirubin,Urine NEG (Negative); Blood,Urine NEG (Negative); Color,Urine Yellow (Yellow); Urobilinogen,Urine < 2.0 mg/dL (<2.0)
[2020-12-24 09:04] VITALS: BP 112/72
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
--- NOTE | 2020-12-24 13:45 | Electrocardiograph Report ---
[facility] Test Date: 2020-12-23 Test Time: 07:12:04 Pat Name: KERRIE GUILLAUME Department: Room: Gender: M Staff Occupational Therapist: TV : 1980 Requested By: STEVE FRENCH Order Number: [id number] Reading MD: Jose Angel Mina Measurements Intervals [place] Rate: 94 P: 82 [place]: 171 QRS: 84 QRSD: 83 T: 59 QT: 314 QTc: 393 Interpretive Statements Sinus rhythm Right atrial enlargement No previous ECG available for comparison Electronically Signed On 12-24-2020 13:44:48 EDT by Jose Angel Mina
== END 2020-12-24 15:00 | disposition home or self-care (01) ==
LOC: ED 06:49
DX: G40.909 Epilepsy, unspecified, not intractable, without status epilepticus (principal); R45.851 Suicidal ideations; I10 Essential (primary) hypertension; F12.90 Cannabis use, unspecified, uncomplicated; F17.200 Nicotine dependence, unspecified, uncomplicated; Z79.899 Other long term (current) drug therapy; Z98.890 Other specified postprocedural states; Z20.822 Contact with and (suspected) exposure to COVID-19
CPT/HCPCS: 36415; 70450; 72125; 80053; 80307; 81001; 82550; 82553; 84484; 85025; 93005; 96374; 99285; J1953; U0003; 80320; G0480